=== PATIENT | male | born 1955 | race Caucasian/White ===

== ENCOUNTER 2017-05-01 09:42 | Outpatient (CLI) | payer OTHER ==
[~2017-05-01 09:42] MED LIST: Iopamidol 370 76% 100 ML VIAL ONE
[2017-05-01 10:31] LABS: Anion Gap 15 mmol/L (10-20); BUN (Urea Nitrogen) 19 mg/dL (8.4-25.7); Calc. Creatinine Clearance 0 mL/min (70-130); Calcium 9.7 mg/dL (7.8-10.44); Carbon Dioxide 26 mmol/L (23-31); Chloride 99 mmol/L (98-107); Estimated GFR-MDRD 54
--- NOTE | 2017-05-01 14:33 | CT ---
CT ABDOMEN AND PELVIS WITH AND WITHOUT IV CONTRAST: Date: 05/01/17 HISTORY: Urinary retention, microscopic hematuria, abnormal bladder cytology, liver mass. COMPARISON: 01/10/17, 12/16/16. FINDINGS: Calcified granulomas in the lung bases again seen. The patient is post cholecystectomy. The right hep atic mass with peripheral nodular enhancement and petal filling consistent with hemangioma is stable. The spleen, pancreas, and adrenal glands are normal. No calculi seen in the kidneys, ureters, or urinary bladder. A Rod catheter is present in the urina ry bladder, which is not satisfactorily distended. There is prominence of the wall of the urinary mil dder which may be due to incomplete distention or thickening. There is normal contrast enhancement of the renal parenchyma and normal excretion to the ureters and urinary bladder. Small low density lesi ons in the kidneys are again seen, consistent with small cysts. Lobulated appearance of the kidneys i s again seen. No enhancing renal mass is identified. No free air, free fluid, or lymphadenopathy is noted in the abdomen or pelvis. Vascular calcification s are present without evidence of aneurysmal dilatation of the abdominal aorta. A normal appearing ap pendix is present. There is fecal material in the rectosigmoid. There are small, fat-containing bilat eral inguinal hernia. Postoperative changes in the left groin are again seen, including arterial bypa ss, which is partially visualized. IMPRESSION: 1. Hepatic hemangioma. 2. Small renal cyst. 3. Probable urinary bladder wall thickening. POS: [facility]
== END 2017-05-01 09:43 | disposition home or self-care (01) ==
LOC: SCSCT 09:42
PROVIDERS: ATTEND Urology
DX: R33.9 Retention of urine, unspecified (principal); R31.29 Other microscopic hematuria; R89.6 Abnormal cytological findings in specimens from other organs, systems and tissues; D18.09 Hemangioma of other sites; N28.1 Cyst of kidney, acquired
CPT/HCPCS: 74178; 80048

== ENCOUNTER 2017-06-03 12:58 | Emergency (ER) | payer OTHER ==
[2017-06-03 14:22] LABS: Bilirubin Negative (Negative); Blood, Urine Negative (Negative); Glucose, Urine (Dipstick) 500 mg/dL (Negative); Ketone, Urine Negative (Negative); Nitrite Negative (Negative); Protein, Urine (Dipstick) Trace mg/dL (Neg-Trace)
== END 2017-06-03 15:10 | disposition home or self-care (01) ==
LOC: SCSER 12:58
DX: R33.9 Retention of urine, unspecified (principal); E11.9 Type 2 diabetes mellitus without complications; E78.5 Hyperlipidemia, unspecified; I10 Essential (primary) hypertension; N40.0 Benign prostatic hyperplasia without lower urinary tract symptoms; Z86.73 Personal history of transient ischemic attack (TIA), and cerebral infarction without residual deficits; Z79.84 Long term (current) use of oral hypoglycemic drugs; Z79.82 Long term (current) use of aspirin; Z79.899 Other long term (current) drug therapy
CPT/HCPCS: 51703; 81003; 87086

== ENCOUNTER 2017-07-21 16:06 | Outpatient (CLI) | payer OTHER ==
[2017-07-21 16:33] LABS: Hemoglobin 13.3 g/dL (14.0-18.0); Mean Corpuscular HGB CONC 33.1 g/dL (32.0-36.0); Mean Corpuscular Hemoglobin 31.6 pg (27.0-31.0); Mean Corpuscular Volume 95.6 fl (80.0-94.0); Mean Platelet Volume 8.3 fL (7.4-10.4); Platelet Count 287 thou/uL (130-400); RBC Distribution Width 12.4 % (11.5-14.5); Red Blood Cell (RBC) Count 4.21 mill/uL (4.70-6.10); White Blood Cell (WBC) Count 10.6 thou/uL (4.8-10.8)
[2017-07-21 16:40] LABS: PTT 27.2 SEC (22.9-36.1); Prothrombin Time 13.3 SEC (12.0-14.7)
[2017-07-21 17:08] LABS: Anion Gap 16 mmol/L (10-20); BUN (Urea Nitrogen) 25 mg/dL (8.4-25.7); Calc. Creatinine Clearance 0 mL/min (70-130); Calcium 9.7 mg/dL (7.8-10.44); Carbon Dioxide 27 mmol/L (23-31); Chloride 96 mmol/L (98-107); Estimated GFR-MDRD 37; Glucose 176 mg/dL (80-115); Potassium 4.2 mmol/L (3.5-5.1); Sodium 135 mmol/L (136-145)
== END 2017-07-21 16:07 | disposition home or self-care (01) ==
LOC: LABBT 16:06
PROVIDERS: ATTEND Family Medicine
DX: Z01.818 Encounter for other preprocedural examination (principal); R89.6 Abnormal cytological findings in specimens from other organs, systems and tissues; N31.2 Flaccid neuropathic bladder, not elsewhere classified
CPT/HCPCS: 36415; 80048; 80061; 80076; 81001; 82570; 83036; 84156; 84443; 85025; 85610; 85730; 87077; 87086; 87186; 93005; 93010

== ENCOUNTER 2017-07-31 06:22 | Day surgery (SDC) | payer OTHER ==
[2017-07-21 16:36] VITALS: BMI 29.0
[2017-07-31] MEDS ORDERED: Levofloxacin 500 mg/D5W 100 ml Premix Bag ONE (06:52)
[2017-07-31] MEDS ORDERED: cefTRIAXone\\ROCEPHIN 2 GM in Sodium Chloride 0.9% 100 ML IVPB SCH (07:00)
[2017-07-31] MEDS ORDERED: Iothalamate Meglumine 60% 50 ML VIAL FS ONE (07:14)
[2017-07-31] MEDS ORDERED: Insulin Regular 300 UNITS/3 ML VIAL ONE (08:08)
[2017-07-31] MEDS ORDERED: Fentanyl 100 MCG/2 ML VIAL ONE (09:40)
[2017-07-31] MEDS ORDERED: Phenazopyridine HCl 97.5 MG TABLET ONE (12:19)
[2017-07-31] MEDS ORDERED: Oxybutynin 5 MG TAB ONE (12:19)
--- NOTE | 2017-07-31 12:49 | RAD ---
RETROGRADE IVP: HISTORY: Renal calcifications. COMPARISON: CT abdomen and pelvis from 05/01/2017. FINDINGS/IMPRESSION: Multiple limited intraoperative fluoroscopic views from a retrograde IVP were submitted for interpret ation. Contrast is seen in both renal collecting systems. There is no evidence of hydronephrosis. No obvious calculi are seen on this exam. Wires were eventually placed and double-J ureteral stents were seen in both renal collecting systems. POS: [facility]
[2017-07-31] MEDS ORDERED: Ondansetron ODT 4 MG TAB ONE (13:17)
--- NOTE | 2017-07-31 13:19 | OP ---
DATE OF SERVICE: 07/31/2017 PREOPERATIVE DIAGNOSES: 1. This is a 61-year-old male with history of urinary retention, chronic atonic bladder. 2. History of cerebrovascular accident. 3. Diabetes. 4. History of microscopic hematuria, positive cytology. POSTOPERATIVE DIAGNOSES: 1. This is a 61-year-old male with history of urinary retention, chronic atonic bladder. 2. History of cerebrovascular accident. 3. Diabetes. 4. History of microscopic hematuria, positive cytology. PROCEDURE: Cystoscopy, random bladder biopsy, bilateral balloon dilatation of the intramural ureter, bilateral flexible ureteroscopy, pyeloscopy, diagnostic. Bilateral retrograde, bilateral 6 x 26 carol nt with dangler taped to his indwelling Rod catheter, replacement of his Rod catheter, 18 Panamanian 10 mL to leg bag. SPECIMEN: 1. Random bladder biopsy x3: 1) right lateral wall; 2) mid posterior; 3) left lateral intraoperativ e findings, no evidence of bladder lesion. 2. Bilateral retrograde pyelogram negative for filling defect. 3. Bilateral ureteroscopy, pyeloscopy negative for occult lesion. 4. Bilateral Narciso plaques. INDICATIONS FOR THE PROCEDURE AND HISTORY: Mr. Collins is a 61-year-old male with history of urinar y retention and urodynamics demonstrating atonic bladder with history of CVA and diabetes. The patie nt's urinary retention was being managed with his , performing clean intermittent catheterization . She has had difficulty catheterizing him efficiently, I did rescope him which demonstrated no evid ence of false passage. As he is transitioning to chronic suprapubic tube, he presents today for abov e endoscopic evaluation. In addition, he has a history of positive cytology, with Cardiology, Neurol ogy clearance approved, presents for bilateral diagnostic ureteroscopy. Risks and complications incl uding, but not limited to; bleeding, pain, infection, urosepsis, recurrent CVA, clot retention, stric ture formation, possible secondary procedure, ureteral renal bladder injury, sepsis reviewed. All qu estions answered to their satisfaction and they desired to proceed. DESCRIPTION OF THE PROCEDURE: After an informed consent is signed, the patient is taken to the opera ting room, placed in a dorsal lithotomy position with the genital area prepped and draped in the usua l surgical sterile fashion. A 21-Panamanian cystoscope was utilized for cystoscopy. This demonstrated n o evidence of false passage, urethral stricture. Prostate demonstrated coapting lateral lobes with n o significant obstructive component per se. The bladder demonstrated some inflammatory changes at th e posterior wall consistent with chronic indwelling Rod catheter. Using a 30 and a 70 degree lens, I performed a cystoscopy which demonstrated no evidence of lesions suspicious for transitional cell carcinoma. The ureteral orifices identified in normal orthotopic position. At this time, a retrogra de pyelogram was performed with a 5 Panamanian open-ended catheter with 1:1 diluted contrast. This was p erformed on both sides. Bilateral retrogrades failed to demonstrate a filling defect. Prompt excret ion of contrast was noted. A 0.35 sensor wire was placed into the right collecting system, using a LY[employer] Kitchen 4 cm 12 Panamanian balloon dilator the intramural ureter was dilated under direct visual ization. After the balloon dilatation of the intramural ureter, we passed a 10 [place]amanian dual-lumen acc ess sheath to the level of the proximal ureter with ease, a second safety wire, a 0.35 superstiff was then placed into the right collecting system. A flexible ureteroscope was then able to be passed ov er the working wire without any issues. A diagnostic pyeloscopy, ureteroscopy performed which demons trated no evidence of occult TCC lesions. There were some intermittent areas of Narciso plaques in t he renal papilla. This was visualized in both collecting systems. At this time, the ureter was surv eyed which demonstrated no evidence of ureteral mucosa, trauma or lesion. A 6 x 26 double-J ureteral stent was passed without difficulty, left on dangler. The diagnostic ureteroscopy, pyeloscopy, ball oon dilatation was then performed in similar fashion on the left side which also failed to demonstrat e any occult lesions of concern. A 6 x 26 double-J ureteral stent was passed on the left side as jeet antoine left in situ. We then performed a random bladder biopsy. The biopsy bed was cauterized w sonia Dahl. An 18-Panamanian 10 mL Rod catheter was then replaced. Ten mL insufflated. Th e bilateral danglers were then taped to the patient's Rod catheter with Tegaderm at the hub. Cathet er was attached to a leg bag which demonstrated pink to red tinged urine. He tolerated the procedure well. He is discharged with indwelling Rod catheter due to atonic bladder. He is discharged with [place] 5/325 #50, ciprofloxacin for 5 days, Colace p.r.n. He will follow up with me this Monday, for bilateral stent removal on . If pathology is negat dejah, we will electively schedule the patient to have suprapubic tube. The patient may resume his Catracho vix when urine output is relatively clear.
[2017-07-31] MEDS ORDERED: Lidocaine 1% PF 5 ML VIAL ONE (15:32)
[2017-07-31] MEDS ORDERED: Ondansetron HCl/PF 4 MG/2 ML Vial ONE (15:32)
[2017-07-31] MEDS ORDERED: Propofol 200 MG/20 ML VIAL ONE (15:32)
[2017-07-31] MEDS ORDERED: PHENYLEPHRINE-NS 100 MCG/ML 10 ML SYRINGE ONE (15:32)
== END 2017-07-31 13:23 | disposition home or self-care (01) ==
LOC: SDC 06:22
PROVIDERS: ATTEND Urology
PROC: 0TBB8ZX Excision of Bladder, Via Natural or Artificial Opening Endoscopic, Diagnostic (ICD-10-PCS; principal; 2017-07-31)
PROC: 0T9880Z Drainage of Bilateral Ureters with Drainage Device, Via Natural or Artificial Opening Endoscopic (ICD-10-PCS; principal; 2017-07-31)
DX: N31.2 Flaccid neuropathic bladder, not elsewhere classified (principal); R33.9 Retention of urine, unspecified; R31.29 Other microscopic hematuria; B02.29 Other postherpetic nervous system involvement; I25.10 Atherosclerotic heart disease of native coronary artery without angina pectoris; E11.22 Type 2 diabetes mellitus with diabetic chronic kidney disease; I12.9 Hypertensive chronic kidney disease with stage 1 through stage 4 chronic kidney disease, or unspecified chronic kidney disease; N18.9 Chronic kidney disease, unspecified; E11.51 Type 2 diabetes mellitus with diabetic peripheral angiopathy without gangrene; I69.354 Hemiplegia and hemiparesis following cerebral infarction affecting left non-dominant side; Z79.2 Long term (current) use of antibiotics; Z79.02 Long term (current) use of antithrombotics/antiplatelets; Z79.82 Long term (current) use of aspirin; Z79.4 Long term (current) use of insulin; Z79.899 Other long term (current) drug therapy; Z95.820 Peripheral vascular angioplasty status with implants and grafts; Z90.49 Acquired absence of other specified parts of digestive tract; Z98.890 Other specified postprocedural states; Z87.891 Personal history of nicotine dependence
CPT/HCPCS: 36416; 74420; 88305; 88342; 88360; 96372; C1758; J0696; J1815; J1956; J2001; J2405; J2704; J3010; J7050; Q0162; Q9961

== ENCOUNTER 2017-08-31 14:44 | Outpatient (CLI) | payer OTHER ==
[2017-08-31 16:00] LABS: Hemoglobin 12.2 g/dL (14.0-18.0); Mean Corpuscular HGB CONC 33.2 g/dL (32.0-36.0); Mean Corpuscular Hemoglobin 30.7 pg (27.0-31.0); Mean Corpuscular Volume 92.6 fl (80.0-94.0); Mean Platelet Volume 7.8 fL (7.4-10.4); Platelet Count 250 thou/uL (130-400); RBC Distribution Width 12.9 % (11.5-14.5); Red Blood Cell (RBC) Count 3.98 mill/uL (4.70-6.10); White Blood Cell (WBC) Count 8.7 thou/uL (4.8-10.8)
[2017-08-31 16:06] LABS: PTT 26.3 SEC (22.9-36.1); Prothrombin Time 12.8 SEC (12.0-14.7)
[2017-08-31 16:25] LABS: Anion Gap 15 mmol/L (10-20); BUN (Urea Nitrogen) 14 mg/dL (8.4-25.7); Calc. Creatinine Clearance 0 mL/min (70-130); Calcium 9.3 mg/dL (7.8-10.44); Carbon Dioxide 23 mmol/L (23-31); Chloride 99 mmol/L (98-107); Estimated GFR-MDRD 58; Glucose 261 mg/dL (80-115); Potassium 3.8 mmol/L (3.5-5.1); Sodium 133 mmol/L (136-145)
--- NOTE | 2017-08-31 16:45 | RAD ---
CHEST 2 VIEWS: HISTORY: Preop. FINDINGS: Cardiac silhouette and pulmonary vasculature are unremarkable. Mediastinum is midline with aortic ca lcification. There is no confluent airspace consolidation, pneumothorax, or pleural fluid apparent. Degenerative changes involve the thoracic spine on the lateral view. IMPRESSION: 1. Atherosclerosis. 2. No active cardiopulmonary abnormalities are otherwise demonstrated. POS: [facility]
== END 2017-08-31 14:45 | disposition home or self-care (01) ==
LOC: LABBT 14:44
PROVIDERS: ATTEND Urology
DX: Z01.818 Encounter for other preprocedural examination (principal); Z01.812 Encounter for preprocedural laboratory examination; R33.9 Retention of urine, unspecified
CPT/HCPCS: 71046; 80048; 81001; 85027; 85610; 85730; 87077; 87086; 87186

== ENCOUNTER 2017-09-20 08:56 | Day surgery (SDC) | payer OTHER ==
[2017-08-31 15:06] VITALS: BMI 29.4
[2017-09-20] MEDS ORDERED: CEFAZOLIN/Water 2 GM/20 ML SYRINGE ONE (10:57)
[2017-09-20] MEDS ORDERED: Fentanyl 100 MCG/2 ML VIAL ONE (11:34)
[2017-09-20] MEDS ORDERED: Levofloxacin 500 mg/D5W 100 ml Premix Bag ONE (11:43)
--- NOTE | 2017-09-20 13:39 | OP ---
DATE OF PROCEDURE: 09/20/2017 PREOPERATIVE DIAGNOSES: 1. A 62-year-old male with atonic bladder. 2. History of hematuria workup negative status post ureteroscopy, pyeloscopy, random bladder biopsy. POSTOPERATIVE DIAGNOSES: 1. A 62-year-old male with atonic bladder. 2. History of hematuria workup negative status post ureteroscopy, pyeloscopy, random bladder biopsy. PROCEDURES PERFORMED: Cystoscopy. A 22 [place]ib[place] Councill-tip suprapubic tube placement , dilation of suprapubic tube track. SURGEON: Dr. Bishop. ANESTHESIA: General. COMPLICATIONS: None apparent. DISPOSITION: To recovery room in stable condition. ESTIMATED BLOOD LOSS: Minimal. INDICATIONS FOR THE PROCEDURE AND HISTORY: Mr. Collins is a 62-year-old male with a history of urinary retention, atonic bladder with history of CVA, peripheral vascular disease. He underwent comprehensive workup regarding microscopic hematuria. As he had subsequent positive cytology, he underwent ureteroscopy, pyeloscopy which demonstrated no significant pathology. He presents today for suprapubic tube placement, as his has had difficulty performing clean intermittent catheterization, which he has been on quite some time. As she has difficulty cathing him intermittently, I did rule out a urethral stricture component of trauma, they desire to proceed with suprapubic tube urinary diversion due to neurogenic atonic bladder. Risks and complications including, but not limited to, bleeding, pain, infection, injury to adjacent organs such as bowel, major vasculature, risk of possible clot retention was reviewed. Expectation of chronic bacteriuria was again discussed with patient and family in detail and they desired to proceed without reservation. DESCRIPTION OF PROCEDURE: After an informed consent is signed, the patient is taken to the operating room, placed in a dorsal lithotomy position with the genital area prepped and draped in the usual surgical sterile fashion. A 22 Djib[place]ian cystoscope was utilized for cystoscopy, which demonstrated no evidence of urethral stricture false passage. Prostatic urethra demonstrated no significant obstruction. Upon entering the bladder, again noted is a large capacious bladder. The bladder was distended via the cystoscope to the level of the umbilicus. Approximately two fingerbreadths above the pubic symphysis, we passed an 18 gauge spinal needle accessing the bladder. The area was marked and using a #10 blade, a small skin incision was made. A 16-Djiboutian Cook codetagner suprapubic tube trocar was then placed with the bladder distended. With this placed into the level of the bladder, we passed a 0.35 Super Stiff wire to the level of the bladder. With the wire confirmed to be in the bladder, using a [employer] NephroMax balloon dilator, we dilated the tract with a 30 Djib[place]ian balloon. Subsequently, I was able to pass a 22 [place]ib[place]ian Councill-tip Rod catheter without any issues. A 15 mL of sterile water was insufflated and the suprapubic tube sutured to skin using 3-0 nylon. This demonstrated pink to clear urine output. This was attached to leg bag gravity bag with extension tubing. He tolerated the procedure well. He will follow up with me in next Monday. If the urine output remains clear, he will be cleared to restart his antiplatelet therapy. NAVEEND
== END 2017-09-20 15:05 | disposition home or self-care (01) ==
LOC: SDC 08:56
PROVIDERS: ATTEND Urology
PROC: 0T9B40Z Drainage of Bladder with Drainage Device, Percutaneous Endoscopic Approach (ICD-10-PCS; principal; 2017-09-20)
DX: N31.2 Flaccid neuropathic bladder, not elsewhere classified (principal); E11.51 Type 2 diabetes mellitus with diabetic peripheral angiopathy without gangrene; I25.10 Atherosclerotic heart disease of native coronary artery without angina pectoris; I12.9 Hypertensive chronic kidney disease with stage 1 through stage 4 chronic kidney disease, or unspecified chronic kidney disease; E11.22 Type 2 diabetes mellitus with diabetic chronic kidney disease; N18.9 Chronic kidney disease, unspecified; N40.1 Benign prostatic hyperplasia with lower urinary tract symptoms; R33.8 Other retention of urine; I69.354 Hemiplegia and hemiparesis following cerebral infarction affecting left non-dominant side; K59.00 Constipation, unspecified; Z87.891 Personal history of nicotine dependence; Z99.3 Dependence on wheelchair; Z79.82 Long term (current) use of aspirin; Z79.4 Long term (current) use of insulin; Z79.899 Other long term (current) drug therapy; Z98.890 Other specified postprocedural states
CPT/HCPCS: 36416; C2627; J1956; J3010; J3370

== ENCOUNTER 2017-12-26 07:31 | Outpatient (CLI) | payer OTHER ==
[2017-12-26] MEDS ORDERED: Iopamidol 370 76% 100 ML VIAL ONE (09:00)
--- NOTE | 2017-12-26 10:58 | CT ---
CT ARTERIOGRAM ABDOMEN AND PELVIS WITH IV CONTRAST AND 3D MIP IMAGING WITH BILATERAL LEG RUNOFF: HISTORY: Claudication. Vascular disease. COMPARISON: 05/01/2017 FINDINGS: Hemangioma within the right liver lobe is again demonstrated. The gallbladder is surgically absent. Degenerative changes of the lumbar spine. A suprapubic catheter decompresses the urinary bladder. There is fecal distention of the rectum. Borderline-sized lymph nodes throughout the mesentery are u nchanged in appearance. Calcification throughout the arterial structures. Multifocal moderate to severe stenoses throughout the superior mesenteric artery. The celiac trunk is patent. There is calcification throughout the i nferior mesenteric artery without the lumen well evaluated. Two primary right renal arteries are visible with calcification, but no significant stenosis reliably demonstrated. Two left renal arteries are patent with arterial calcification. The right iliac artery contains calcification with approximately 60% stenosis of the common iliac art daniela. The external iliac artery contains a focal area of approximately 80% stenosis. Approximately 7 0% stenosis within the right common femoral artery. There is severe calcification along the course o f the right femoral artery, with imaging outrunning the contrast flow. Arterial flow is not well doc umented within the femoral artery, although there is very faint opacification of the popliteal artery . Calcification is present throughout the small vessels of the right lower leg without good arterial opacification. On the left, there is a short segment focus of high grade, approximately 90% stenosis, within the ext ernal iliac artery. A focal area of narrowing with approximately 90% stenosis also involves the bifu rcation of the external iliac artery. This is probably at the origin of the iliofemoral bypass. The re is thrombus within the bypass, with approximately 50% narrowing at several levels. At the level o f the popliteal artery, the imaging has outrun the contrast flow. There is calcification within the popliteal artery and small vessels of the lower leg without good arterial opacification. IMPRESSION: 1. Severe vascular disease with multilevel severe stenosis of the iliac and femoral arteries. Due t o the severe stenosis, the distal arterial structures are not well opacified for evaluation. Please consider conventional arteriography. Due to severe disease and prior surgery, a femoral access may n ot be possible. The right common femoral artery is severely stenotic. An upper extremity access or accessing the left arterial graft may be necessary. 2. Chronic type findings of the abdomen and pelvis are stable. POS: [facility]
== END 2017-12-26 07:32 | disposition home or self-care (01) ==
LOC: SCSCT 07:31
PROVIDERS: ATTEND Internal Medicine Cardiovascular Disease
DX: I73.9 Peripheral vascular disease, unspecified (principal); I70.202 Unspecified atherosclerosis of native arteries of extremities, left leg; Z98.890 Other specified postprocedural states
CPT/HCPCS: 75635

== ENCOUNTER 2018-02-09 12:31 | Outpatient (CLI) | payer OTHER ==
--- NOTE | 2018-02-10 05:13 | EKG ---
Test Reason : Blood Pressure : / mmHG Vent. Rate : 080 BPM Atrial Rate : 080 BPM P-R Int : 198 ms QRS Dur : 148 ms QT Int : 412 ms P-R-T Axes : 061 095 067 degrees QTc Int : 475 ms Normal sinus rhythm Right axis deviation Right bundle branch block Abnormal ECG When compared with ECG of 21-JUL-2017 16:18, No significant change was found Confirmed by KATELYN DUKE ([id number]) on 02/10/2018 5:12:50 AM Referred By: JU Confirmed By:KATELYN DUKE
== END 2018-02-09 12:32 | disposition home or self-care (01) ==
LOC: LABBT 12:31
PROVIDERS: ATTEND Thoracic Surgery (Cardiothoracic Vascular Surgery)
DX: Z01.818 Encounter for other preprocedural examination (principal); I73.9 Peripheral vascular disease, unspecified
CPT/HCPCS: 80048; 85027; 86850; 86900; 86901; 93005; 93010

== ENCOUNTER 2018-07-04 11:27 | Inpatient (IN) | payer OTHER ==
[2018-07-04 11:57] LABS: Bilirubin Small (Negative); Blood, Urine Small (Negative); Clarity Cloudy (Clear); Glucose, Urine (Dipstick) Negative (Negative); Leukocyte Moderate (Negative); Nitrite Negative (Negative); Protein, Urine (Dipstick) > or equal to 300 mg/dL (Neg-Trace); Urobilinogen 0.2 mg/dL (0.2-1.0); pH, Urine Greater/Equal 9.0 (5.0-9.0)
[2018-07-04 12:02] LABS: Bacteria/HPF 3+ HPF (None Seen); Hyaline Casts/LPF NONE SEEN LPF (0-3 Hyaline); Squamous Epithelial 0-3 HPF (0-3)
[2018-07-04 12:17] LABS: ALT (SGPT) 11 U/L (8-55); AST (SGOT) 48 U/L (5-34); Albumin 2.8 g/dL (3.4-4.8); Alkaline Phosphatase 756 U/L (40-150); Anion Gap 19 mmol/L (10-20); BUN (Urea Nitrogen) 27 mg/dL (8.4-25.7); Bilirubin, Total 1.4 mg/dL (0.2-1.2); Calc. Creatinine Clearance 0 mL/min (70-130); Calcium 8.6 mg/dL (7.8-10.44); Carbon Dioxide 18 mmol/L (23-31); Chloride 98 mmol/L (98-107); Estimated GFR-MDRD 34; Globulin 5.5 g/dL (2.4-3.5); Glucose 135 mg/dL (80-115); Potassium 4.7 mmol/L (3.5-5.1); Protein, Total 8.3 g/dL (5.8-8.1); Sodium 130 mmol/L (136-145)
[2018-07-04] MEDS ORDERED: cefTRIAXone\\ROCEPHIN 1 GM VIAL ONE (12:31)
[2018-07-04] MEDS ORDERED: Sodium Chloride 0.9% 100 ML ONE (12:31)
[2018-07-04] MEDS ORDERED: Iopamidol 370 76% 100 ML VIAL ONE (13:20)
[2018-07-04 13:44] LABS: Hemoglobin 10.8 g/dL (14.0-18.0); Mean Corpuscular HGB CONC 32.8 g/dL (32.0-36.0); Mean Corpuscular Hemoglobin 28.2 pg (27.0-31.0); Mean Corpuscular Volume 86.1 fL (78.0-98.0); Red Blood Cell (RBC) Count 3.83 mill/uL (4.70-6.10); White Blood Cell (WBC) Count 7.8 thou/uL (4.8-10.8)
--- NOTE | 2018-07-04 13:52 | RAD ---
PORTABLE CHEST: Indications: Mental status change. Comparison: 08-31-17 FINDINGS: The lungs appear clear of infiltrate. Heart and mediastinum are unremarkable and unchanged. Mild aort ic calcification. Review of the bony thorax shows new sclerotic foci seen involving the scapula, shoulders, and ribs. IMPRESSION: 1. No evidence of acute lung process. 2. Evidence of new bony sclerotic foci seen when compared to prior study. Bony metastatic lesions mus t be excluded. Recommend clinical correlation and consider further evaluation with bone scan. Code T POS: [facility]
[2018-07-04 14:07] LABS: #Eosinphils 0.3 thou/uL (0.0-0.7); #Lymphocytes 0.7 thou/uL (1.20-3.40); #Monocytes 0.7 thou/uL (0.11-0.59); %Basophils 0.4 % (0.0-1.0); %Eosinophils 3.3 % (0.0-10.0); %Lymphocytes 9.2 % (21.0-51.0); %Monocytes 9.5 % (0.0-10.0); %Neutrophils 77.5 % (42.0-75.0); MDiff Complete? YES; Mean Platelet Volume 10.9 fL (7.4-10.4); Platelet Count 107 thou/uL (130-400); Platelet Morphology Comment Appears Decreased; Polychromasia SLIGHT = 2-3 cells (100X) (0-2/hpf)
--- NOTE | 2018-07-04 14:30 | CT ---
CT ABDOMEN AND PELVIS WITHOUT CONTRAST: Technique: Multiple axial tomograms were obtained through the abdomen and pelvis without IV enhanceme nt. Indications: Evidence of new bony metastatic disease seen on chest film. Comparison: Abdominal CT 05-01-17 FINDINGS: Lung bases show small left effusion and mild basilar atelectasis. There is an area of low attenuation in the right lobe of the liver. This is at the site of a previous ly described hemangioma. Liver and spleen otherwise unremarkable. Pancreas unremarkable. Adrenal glan ds unremarkable. Kidneys show irregular contour bilaterally which is stable from the prior study. There is no hydronep hrosis. There is a 1.0 cm hyperdense exophytic lesion from the inferior pole of the left kidney. This lesion was present previously but was more cystic in density on the prior study. Other renal lesions cannot be assessed due to lack of IV contrast. However, the renal contour and kidneys otherwise appe ar stable. Small bowel loops appear unremarkable. Appendix is normal. Colon is unremarkable. Urinary bladder is contracted around an indwelling Rod catheter. The prostate does not appear enlar ged. Aorta is calcified but normal caliber. Osseous windows revealed diffuse sclerotic foci seen in all visualized osseous structures consistent with diffuse bony metastasis. This is a new finding when compared to the 2017 CT scan. IMPRESSION: 1. Evidence of diffuse osseous metastatic disease. 2. Small left pleural effusion. 3. Kidneys have irregular contour and a tiny exophytic lesion off the inferior left kidney as describ ed above. Enhancing lesions cannot be excluded. Overall, the kidneys appear stable. 4. Low attenuation in the right lobe of the liver is seen at the site of a previously described heman gioma. POS: [facility]
--- NOTE | 2018-07-04 14:32 | PDOC.FPRHP ---
- History of Present Illness Chief Complaint: failed outpt UTI History of Present Illness: 62 yo male with multiple medical conditions presents to outside ER for evaluation of "not feeling right." and patient historians. concerned that patient has not been feeling right or doing well since . notes concerning changes since that time including weight loss, decreased appetite, back pain, and weakness. Over the past week he was diagnosed with UTI. Culture taken but patient unsure of results. Was started on macrobid. 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 notices a change in mentation today that prompted ER visit. Notes decreased ability concentrate and focus. No pus noted in cath. Reports a decreased UOP. Denies fever and chills but notes episode of diaphoresis. Code status: Full (discussed with patient and ) - Allergies/Adverse Reactions Allergies Allergy/AdvReac Type Severity Reaction Status Date / Time No Known Allergies Allergy Verified 02/09/18 12:48 - Home Medications Medication Instructions Recorded Confirmed Type metFORMIN [Glucophage] 500 mg PO QAM 06/12/16 07/04/18 History Simvastatin 20 mg PO HS #30 tablet 06/22/16 07/04/18 Rx Clopidogrel Bisulfate [Plavix] 75 mg PO DAILY 09/06/16 07/04/18 History Losartan Potassium 100 mg PO HS 09/06/16 07/04/18 History Pantoprazole [Protonix] 40 mg PO DAILY 09/06/16 07/04/18 History Aspirin [Ecotrin Low Strength] 81 mg PO DAILY 10/25/16 07/04/18 History Docusate [Colace] 100 mg PO BID 07/31/17 07/04/18 History Insulin Detemir 100 UNITS/ML 36 units SC BID 08/31/17 07/04/18 History [Levemir] Polyethylene Glycol 3350 [Miralax] 34 gm PO DAILY 08/31/17 07/04/18 History Diazepam 5 mg PO PRN PRN 02/09/18 07/04/18 History Icosapent Ethyl [Vascepa] 2 gm PO BID-WM 02/09/18 07/04/18 History Carvedilol 12.5 mg PO BID 07/04/18 07/04/18 History HYDROcodone Bit/APAP 5/325 [Olivet 1 tab PO Q6HR PRN 07/04/18 07/04/18 History 5/325] - History PMHx: 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 Bladder bx negative x 3 07/2017. PSHx: david (2016), stent L leg (01/2018), left external iliac to popiliteal bypass (2015), Negrita procedure (2015), Right Carotid enart (2015) now with occluded right ICA, suprapubic catheter (07/2017), colonoscopy with multiple polyps (several years ago, was to follow up but did not) FHx: non-contributory Social: 2ppd smoker since age 15 but stopped after CVA, social alcohol use, denies illicit drug use Specialist: Gen surg: Liang CT surg: Pierre Urology: Edna Cards: Adilia GI: Ragupathi Neuro: Alexandre Nephro: Dav - Review of Systems General: reports: night sweats. denies: fever/chills, fatigue Eyes: denies: eye pain, vision changes ENT: denies: nasal congestion, rhinorrhea Respiratory: denies: cough, shortness of breath Cardiovascular: denies: chest pain, palpitation Gastrointestinal: reports: nausea, constipation. denies: vomiting, diarrhea, abdominal pain, GI bleeding Genitourinary: reports: other (decreased urine output from suprapubic catheter) . denies: dysuria, polyuria Skin: denies: rashes, lesions Musculoskeletal: denies: pain, tenderness Neurological: reports: weakness (no use of L arm/hand since stroke, can walk with walker, decreased strength on the LLE). denies: numbness - Vital signs BP: 125/65 HR: 85 RR: 16 Tmax: 97.6 Pox: 94% on ra Wt: 85kg - Physical Exam Constitutional: NAD, awake, alert and oriented HEENT: normocephalic and atraumatic, PERRLA, EOMI Neck: supple Heart: RRR, normal S1/S2, no murmurs/rubs/gallops Lungs: CTAB, no respiratory distress, good air movement, no rales/rhonchi Abdomen: soft, non-tender, bowel sounds present, no masses/distention Musculoskeletal: normal structure -Musculoskeletal: inability to use L arm plantar flexion 3/4 on L foot Neurological: CN II-XII intact Skin: no rash/lesions, capillary refill <2 seconds FMR H&P: Results - Labs Result Diagrams: 07/05/18 10:53 07/05/18 07:08 Lab results: WBC 7.8 thou/uL (4.8-10.8) 07/04/18 11:55 Hgb 10.8 g/dL (14.0-18.0) L 07/04/18 11:55 Hct 33.0 % (42.0-52.0) L 07/04/18 11:55 MCV 86.1 fL (78.0-98.0) 07/04/18 11:55 Plt Count 107 thou/uL (130-400) L 07/04/18 11:55 Neutrophils % 77.5 % (42.0-75.0) H 07/04/18 11:55 Sodium 130 mmol/L (136-145) L 07/04/18 11:55 Potassium 4.7 mmol/L (3.5-5.1) 07/04/18 11:55 Chloride 98 mmol/L (98-107) 07/04/18 11:55 Carbon Dioxide 18 mmol/L (23-31) L 07/04/18 11:55 BUN 27 mg/dL (8.4-25.7) H 07/04/18 11:55 Creatinine 1.98 mg/dL (0.7-1.3) H 07/04/18 11:55 Glucose 135 mg/dL (80-115) H 07/04/18 11:55 Lactic Acid 1.5 mmol/L (0.5-2.2) 07/04/18 11:55 Calcium 8.6 mg/dL (7.8-10.44) 07/04/18 11:55 Total Bilirubin 1.4 mg/dL (0.2-1.2) H 07/04/18 11:55 AST 48 U/L (5-34) H 07/04/18 11:55 ALT 11 U/L (8-55) 07/04/18 11:55 Alkaline Phosphatase 756 U/L (40-150) H 07/04/18 11:55 Serum Total Protein 8.3 g/dL (5.8-8.1) H 07/04/18 11:55 Albumin 2.8 g/dL (3.4-4.8) L 07/04/18 11:55 Urine Ketones Trace mg/dL (Negative) H 07/04/18 11:40 Urine Blood Small (Negative) H 07/04/18 11:40 Urine Nitrite Negative (Negative) 07/04/18 11:40 Ur Leukocyte Esterase Moderate (Negative) H 07/04/18 11:40 Urine RBC 4-6 HPF (0-3) 07/04/18 11:40 Urine WBC 4-6 HPF (0-3) H 07/04/18 11:40 Ur Squamous Epith Cells 0-3 HPF (0-3) 07/04/18 11:40 Urine Bacteria 3+ HPF (None Seen) H 07/04/18 11:40 FMR H&P: A/P - Problem List (1) Bone metastases Current Visit: Yes Status: Acute Code(s): C79.51 - SECONDARY MALIGNANT NEOPLASM OF BONE (2) UTI (urinary tract infection) Current Visit: Yes Status: Acute (3) Hyponatremia Current Visit: No Status: Acute Code(s): E87.1 - HYPO-OSMOLALITY AND HYPONATREMIA (4) CKD (chronic kidney disease) stage 3, GFR 30-59 ml/min Current Visit: No Status: Chronic Code(s): N18.3 - CHRONIC KIDNEY DISEASE, STAGE 3 (MODERATE) (5) DM type 2 (diabetes mellitus, type 2) Current Visit: No Status: Chronic Qualifiers: Diabetes mellitus shelter insulin use: without shelter use Diabetes mellitus complication status: with unspecified complications Qualified Code(s) : E11.8 - Type 2 diabetes mellitus with unspecified complications (6) H/O: CVA (cerebrovascular accident) Current Visit: No Status: Chronic Code(s): Z86.73 - PRSNL HX OF TIA (TIA), AND CEREB INFRC W/O RESID DEFICITS Comment: with left UE plegia and Left LE paresis, is wheel chair bound (7) Hypertension Current Visit: No Status: Chronic Code(s): I10 - ESSENTIAL (PRIMARY) HYPERTENSION Qualifiers: Hypertension type: essential hypertension Qualified Code(s): I10 - Essential (primary) hypertension (8) Peripheral vascular disease Current Visit: No Status: Chronic Code(s): I73.9 - PERIPHERAL VASCULAR DISEASE, UNSPECIFIED (9) Tobacco use Current Visit: No Status: Chronic Code(s): Z72.0 - TOBACCO USE - Plan # Bone metastasis - noted on CXR - weight loss since , worsening bone pain - elevated ALP - positive fish for bladder cancer 2017 - bladder wall bx neg 2018 - ordered CT chest, bone scan, UPEP, SPEP for further evaluation - will plan to consult Onc in the morning # UTI - failed outpt macrobid - denies fevers, chills, has had sweats, no blood in urine - rocephin # DASH on CKD - Cr 1.98 - gentle rehydration #HTN - home meds # History of CVA - left sided weakness since stroke - PT/OT # Tobacco abuse - 80 pack-year Diet: regular Fluids: LR 75 ml/hr Code: full (discussed with patient and family) Dispo: >2 midnights FMR H&P: Upper Level - Plan Date/Time: 07/04/18 8698 I, [], have evaluated this patient and agree with findings/plan as outlined by management 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 Pertinent changes/additions are listed here. Addendum - Attending - Attending Attestation Date/Time: 07/04/18 3539 I personally evaluated the patient and discussed the management with Dr. Cervantes I agree with the History, Examination, Assessment and Plan documented above with any addition or exceptions noted below. 62 yo male with hx of suprapubic cath admitted for complicated UTI. Patient per has really been declining since . Over the past week was diagnosed with UTI. Started on macrobid. Noticed progressive mental changes and decreased UOP. has been concerned with progressive weight loss, decreased appetite, back pain, and generalized weakness. VS reviewed. Lab reviewed. Imaging reviewed. NAD. Has to be redirected for exam. Slow to answer questions. RRR. no murmurs CTA bilaterally but limited exam due to mobility suprapubic cath in place. no erythema or drainage noted. 1. Sclerotic Bone disease: Multiple metastatic/sclerotic lesions to spine and pelvic bones. Images compared from 12/2017. None appear to be present at that time. Risk include chronic tobacco use, positive FISH for bladder cancer 2017, and colon polyps. Bladder wall bx negative 2018. Left renal lesion incompletely evaluated due to lack of contrast. No significant family hx of cancer. Mother with cervical cancer. However father hx unknown. Alk phos elevated since [address] chest and bone survey ordered. No evidence of pathological fracture on current imaging. Urine cytology sent. Rule out MM due to anemia, bone pain, weight loss, and imaging findings. However patient does not have hypercalcemia. Consult oncology. Consider repeat CT abdomen with contrast for better renal lesion evaluation. However in past was noted to be cystic. Will awaiting imaging results and onc recommendation before further workup. 2. Complicated UTI: Male with suprapubic cath. Will request urine studies from PCP office. Past cultures reviewed. Unsure if ER culture will be helpful due to recent antibiotic use. Will continue Rocephin at this time. Consider adding Vanc if needed due to past hx of resistant Staph epidermidis. No evidence of sepsis complicated UTI at this time. 3. DASH on CKD: Urine studies pending. Give gentle fluids. 4. Hyperbilirubinemia: Repeat labs. Monitor. s/p david. No mass lesions on imaging other than liver hemangioma but awaiting chest scans. 5. Elevated AST: Trend. No significant finding on hepatic imaging. 6. Hyponatriemia: Osmols pending along with urine studies. Will review aug. Trend. Will start IVFs. Rule out SIADH. 7. Comorbid conditions: Adjust medications as indicated 8. Lovenox Olga
[2018-07-04] MEDS ORDERED: Ondansetron ODT 4 MG TAB PO PRN (16:18)
[2018-07-04] MEDS ORDERED: Senokot S 8.6-50 MG TAB PO PRN (16:18)
[2018-07-04] MEDS ORDERED: Bisacodyl 5 MG TAB PO PRN (16:18)
[2018-07-04 16:19] VITALS: BMI 26.9
[2018-07-04] MEDS ORDERED: Ibuprofen 200 MG TAB PO PRN (16:21)
[2018-07-04] MEDS ORDERED: Diazepam 5 MG TAB PO PRN (17:17)
[2018-07-04] MEDS ORDERED: HumaLOG 300 UNITS/3 ML VIAL SC PRN (17:20)
[2018-07-04] MEDS ORDERED: Dextrose 50% Abboject 50 ML SYRINGE SLOW IVP PRN (17:20)
[2018-07-04] MEDS ORDERED: Dextrose 5% in Water 1,000 ML IV PRN (17:20)
[2018-07-04] MEDS ORDERED: Melatonin 3 MG TAB PO PRN (17:38)
[2018-07-04] MEDS: HYDROcodone/Acetaminophen 5/325 mg Tablet PO PRN (18:33)
[2018-07-04] MEDS: Lactated Ringer's 1,000 ML IV SCH (18:39)
--- NOTE | 2018-07-04 19:27 | CT ---
CT CHEST WITH IV CONTRAST: 07/04/2018 PROVIDED CLINICAL HISTORY: Abnormal chest radiograph. FINDINGS: Vascular calcification, including coronary calcium, is demonstrated. There is an enlarged right para tracheal lymph node, measuring about 1.6 cm in short axis. There is an enlarged right hilar lymph no de, measuring about 1.7 cm. There are multiple enlarged paratracheal lymph nodes seen within the reg ion of the thoracic inlet, the largest of which measures about 1.4 cm in short axis. No evidence for axillary lymph node enlargement. There are small bilateral pleural effusions. There is a 3 mm, nonspecific, noncalcified, right upper lobe pulmonary nodule. Occasional additional tiny, nonspecific, nodular densities are also present. The airway appears patent but of normal caliber. Secretions are seen within the distal trachea. There are innumerable sclerotic lesions throughout the visualized osseous structures. A fluid densit y structure within the subcutaneous adipose layer, overlying the manubrium of the sternum, is likely a sebaceous cyst. There is an ill-defined, hypodense mass present involving the right hepatic lobe, measuring about 3.9 cm. There is an ill-defined low density present within the region of the gastric cardia and gastroesophageal junction with enlarged lymph nodes seen about this region. Prominent, e nlarged lymph nodes within the visualized upper retroperitoneum. IMPRESSION: 1. Diffuse osseous metastatic disease. 2. Right liver lesion, likely metastatic. 3. Small bilateral pleural effusions. 4. Abnormal appearance to the gastric cardia and gastroesophageal junction, for which further evalua tion with endoscopy is recommended. 5. Abdominal lymph node enlargement and thoracic lymph node enlargement, as above, presumably metast atic. POS: CHADD
--- NOTE | 2018-07-04 19:54 | RAD ---
WHOLE BODY BONE SURVEY 07/04/18 PROVIDED CLINICAL HISTORY: Metastatic disease. FINDINGS: Innumerable sclerotic lesions are seen throughout the axial and proximal appendicular skeleton compat ible with metastatic disease. Vascular stent material and degenerative changes are seen. Surgical cli ps overlie each inguinal region. No evidence for fracture. IMPRESSION: As above. POS: CHADD
[2018-07-04] MEDS: Zolpidem Tartrate 5 MG TAB PO PRN (20:29)
[2018-07-04] MEDS: Atorvastatin Calcium 10 MG TAB PO SCH (20:29)
[2018-07-04] MEDS: Carvedilol 6.25 MG TAB PO SCH (20:29)
[2018-07-04] MEDS: Docusate 100 MG CAP PO SCH (20:31)
[2018-07-04] MEDS: Insulin Glargine 10 UNITS in Pre-Filled Syringe 1 EACH SC SCH (20:31)
[2018-07-05] MEDS: Lactated Ringer's 1,000 ML IV SCH (05:40)
[2018-07-05] MEDS: HYDROcodone/Acetaminophen 5/325 mg Tablet PO PRN ×4 (05:49→20:31)
[2018-07-05 07:41] LABS: Hemoglobin 9.6 g/dL (14.0-18.0); Mean Corpuscular HGB CONC 31.5 g/dL (32.0-36.0); Mean Corpuscular Hemoglobin 27.5 pg (27.0-31.0); Mean Corpuscular Volume 87.3 fL (78.0-98.0); Mean Platelet Volume 8.5 fL (7.4-10.4); Platelet Count 102 thou/uL (130-400); RBC Distribution Width 14.1 % (11.5-14.5); White Blood Cell (WBC) Count 5.7 thou/uL (4.8-10.8)
[2018-07-05 07:42] LABS: #Eosinphils 0.2 thou/uL (0.0-0.7); #Lymphocytes 0.6 thou/uL (1.20-3.40); #Monocytes 0.6 thou/uL (0.11-0.59); #Neutrophils 4.3 thou/uL (1.40-6.50); %Basophils 0.5 % (0.0-1.0); %Eosinophils 3.5 % (0.0-10.0); %Lymphocytes 10.5 % (21.0-51.0); %Monocytes 9.9 % (0.0-10.0); %Neutrophils 75.7 % (42.0-75.0)
[2018-07-05 07:59] LABS: ALT (SGPT) 12 U/L (8-55); AST (SGOT) 46 U/L (5-34); Albumin 2.6 g/dL (3.4-4.8); Alkaline Phosphatase 811 U/L (40-150); Anion Gap 15 mmol/L (10-20); BUN (Urea Nitrogen) 28 mg/dL (8.4-25.7); Calc. Creatinine Clearance 51 mL/min (70-130); Calcium 8.3 mg/dL (7.8-10.44); Carbon Dioxide 19 mmol/L (23-31); Chloride 99 mmol/L (98-107); Estimated GFR-MDRD 38; Globulin 4.7 g/dL (2.4-3.5); Glucose 124 mg/dL (80-115); Potassium 4.1 mmol/L (3.5-5.1); Protein, Total 7.3 g/dL (5.8-8.1); Sodium 129 mmol/L (136-145)
[2018-07-05] MEDS ORDERED: Icosapent Ethyl [Vascepa] 2 GM PO SCH (08:00)
[2018-07-05] MEDS: Carvedilol 6.25 MG TAB PO SCH ×2 (08:35→20:31)
[2018-07-05] MEDS: Enoxaparin Sodium 30 MG/0.3 ML SYRINGE SC SCH (08:36)
[2018-07-05] MEDS: Aspirin 81 mg Enteric Coated Tablet PO SCH (08:36)
[2018-07-05] MEDS: Docusate 100 MG CAP PO SCH ×2 (08:37→20:32)
[2018-07-05] MEDS: Polyethylene Glycol 3350 17 GM Packet PO SCH (08:37)
--- NOTE | 2018-07-05 08:38 | PDOC.FM ---
Addendum entered and electronically signed by Bradley Cervantes MD 07/05/18 09:52: ordered: peripheral smear, CA 19-9 & 15-3, CEA, AFP, LDH, PSA, beta hcg for workup of cancer of unknown source consulted GI for eval for endoscopy for biopsy of mass at [facility] Original Note: - Subjective Subjective: This morning patient reports he is feeling ok overall. He states his bone pain is well-controlled with norco but turning for the bone scan was painful. He has not been eating much but states he would try some chocolate ensure today. Denies fevers, chills, sweats, N/V/D. Discussed finding of multiple metastasis on imaging. Discussed further workup to find source. Family is understandingly disappointed but ready for further workup. - Objective Vital Signs & Weight: Vital Signs (12 hours) Temp Pulse Resp BP Pulse Ox 07/05/18 07:37 97.8 F 90 18 101/65 94 L 07/05/18 04:00 97.3 F L 91 18 116/71 92 L 07/05/18 00:00 98.1 F 97 18 110/74 92 L Weight Weight 85.275 kg I&O: 07/04/18 07/05/18 07/06/18 06:59 06:59 06:59 Intake Total 1300 Output Total 300 550 Balance -300 750 Result Diagrams: 07/05/18 07:08 07/05/18 07:08 Phys Exam - Physical Examination Constitutional: NAD HEENT: PERRLA, moist MMs Respiratory: no wheezing, clear to auscultation bilateral Cardiovascular: RRR, no significant murmur Gastrointestinal: soft, non-tender, no distention, positive bowel sounds catheter in place no sign of bleeding or induration Musculoskeletal: no edema, pulses present weakness on the L chronic, Psychiatric: normal affect, A&O x 3 Skin: no rash, cap refill <2 seconds Dx/Plan (1) Bone metastases Code(s): C79.51 - SECONDARY MALIGNANT NEOPLASM OF BONE Status: Acute (2) UTI (urinary tract infection) Status: Acute (3) Hyponatremia Code(s): E87.1 - HYPO-OSMOLALITY AND HYPONATREMIA Status: Acute (4) CKD (chronic kidney disease) stage 3, GFR 30-59 ml/min Code(s): N18.3 - CHRONIC KIDNEY DISEASE, STAGE 3 (MODERATE) Status: Chronic (5) DM type 2 (diabetes mellitus, type 2) Status: Chronic Qualifiers: Diabetes mellitus 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 terminal supervisor insulin use: without ferry terminal supervisor use Diabetes mellitus complication status: with unspecified complications Qualified Code(s) : E11.8 - Type 2 diabetes mellitus with unspecified complications (6) H/O: CVA (cerebrovascular accident) Code(s): Z86.73 - PRSNL HX OF TIA (TIA), AND CEREB INFRC W/O RESID DEFICITS Status: Chronic (7) Hypertension Code(s): I10 - ESSENTIAL (PRIMARY) HYPERTENSION Status: Chronic Qualifiers: Hypertension type: essential hypertension Qualified Code(s): I10 - Essential (primary) hypertension (8) Peripheral vascular disease Code(s): I73.9 - PERIPHERAL VASCULAR DISEASE, UNSPECIFIED Status: Chronic (9) Tobacco use Code(s): Z72.0 - TOBACCO USE Status: Chronic - Plan Plan: # Bone metastasis - weight loss since gi, worsening bone pain, decreasing appetite - elevated ALP - positive fish for bladder cancer 2017 - bladder wall bx neg 2018 - CT chest and bone scan show widespread metastasis - SPEP, UPEP pending - will discuss further imaging on rounds, consider CT head, endoscopy - Oncology consulted, recs appreciated # UTI - failed outpt macrobid - denies fevers, chills, has had sweats, no blood in urine - rocephin - ucx, bcx pending # DASH on CKD - Cr 1.98-> 1.8 - gentle rehydration #HTN - home meds # History of CVA - left sided weakness since stroke - PT/OT # Tobacco abuse - 80 pack-year Diet: regular Fluids: LR 75 ml/hr Code: full (discussed with patient and family), they value "quality over quantity", instructed them to await further information before making big decisions Dispo: >2 midnights Addendum - Attending - Attending Attestation Date/Time: 07/05/18 5784 I personally evaluated the patient and discussed the management with Dr. Cervantes. I agree with the History, Examination, Assessment and Plan documented above with any addition or exceptions noted below. Patient here originally for UTI failed outpatient treatment but subsequently noted to have likely diffuse radha metastatic disease with unknown primary malignancy. In regards to UTI, his UA is consistent with either Klebsiella, Proteus, or Ureaplasma and he continues on Rocephin with cultures pending. This could represent colonization due to suprapubic catheter placement. Due to diffuse radha mets, we are performing malignancy workup included peripheral smear, tumor markers, SPEP/UPEP. Imaging did not reveal primary source though suspect GE junction and will consult GI for possible EGD and biopsy. Otherwise, may need to pursue IR guided liver or node biopsy. DASH versus CKD and appears that may have a degree of SIADH. If repeat labs show stable Cr and decreasing sodium, will begin fluid restriction and assume his renal status is more chronic in nature. Increased total protein and globulins, though radha involvement not characteristic for MM. Oncology on board and awaiting biopsy.
[2018-07-05] MEDS: cefTRIAXone\\ROCEPHIN 1 GM in Sodium Chloride 0.9% 100 ML IVPB SCH (08:40)
[2018-07-05 11:09] LABS: Hemoglobin 10.1 g/dL (14.0-18.0); Mean Corpuscular HGB CONC 33.7 g/dL (32.0-36.0); Mean Corpuscular Hemoglobin 28.7 pg (27.0-31.0); Mean Corpuscular Volume 85.1 fL (78.0-98.0); Mean Platelet Volume 8.5 fL (7.4-10.4); Platelet Count 97 thou/uL (130-400); Red Blood Cell (RBC) Count 3.52 mill/uL (4.70-6.10); White Blood Cell (WBC) Count 5.5 thou/uL (4.8-10.8)
[2018-07-05] MEDS: metFORMIN 500 MG TAB PO SCH (11:13)
[2018-07-05] MEDS: Insulin Glargine 10 UNITS in Pre-Filled Syringe 1 EACH SC SCH ×2 (11:13→21:28)
[2018-07-05 11:33] LABS: Band 14 % (5-11); Eosinophils 3 % (0-10); Lymphocytes 17 % (21-51); MDiff Complete? YES; Metamyelocyte 1 % (0-0); Monocytes 4 % (0-10); Myelocyte 2 % (0-0); Neutrophil 59 % (42-75); Platelet Morphology Comment Appears Decreased; Polychromasia SLIGHT = 2-3 cells (100X) (0-2/hpf)
--- NOTE | 2018-07-05 12:08 | CON ---
DATE OF CONSULTATION: HISTORY OF PRESENT ILLNESS: The patient is a 62-year-old male, who was in his normal state of health until the day of admission when he developed some shortness of breath. He had an appointment scheduled, but he decided to come to the emergency room. He reports over the last several weeks, he has lost his appetite. He denies any dysphagia or nausea or vomiting. He has lost an unknown amount of weight. He had a colonoscopy with polyps several years ago. He also had an evaluation for liver mass in the past, which has included liver biopsy and was told that it was hemangioma. PAST MEDICAL HISTORY: Significant for diabetes mellitus, hypertension, cerebrovascular accident, peripheral vascular disease, and hepatic hemangioma. PAST SURGICAL HISTORY: Includes cholecystectomy, vascular surgery, popliteal femoral bypass, carotid endarterectomy, and suprapubic catheter placement. MEDICATIONS: Include; 1. Metformin 500 mg p.o. daily. 2. Simvastatin 20 mg p.o. at bedtime. 3. Plavix 75 mg p.o. daily. 4. Losartan 100 mg p.o. at bedtime. 5. Protonix 40 mg p.o. daily. 6. Aspirin 81 mg p.o. daily. 7. Docusate sodium 100 mg p.o. b.i.d. 8. Insulin 36 units subcu b.i.d. 9. Polyethylene glycol 34 g p.o. daily. 10. Vascepa 2 g p.o. b.i.d. 11. Coreg 12.5 mg p.o. b.i.d. 12. Hydrocodone one p.o. q.6 hours p.r.n. ALLERGIES: NO KNOWN ALLERGIES. SOCIAL HISTORY: He is a smoker. Does not drink alcohol. FAMILY HISTORY: Negative for GI or liver disease. REVIEW OF SYSTEMS: CONSTITUTIONAL: No fever or chills. Positive weight loss. EYES: No blurred vision or double vision. ENT: No sore throat or earaches. CARDIOVASCULAR: No chest pain or palpitations. PULMONARY: Positive shortness of breath. Negative for cough. Negative for wheeze. GI: See above. : No hematuria or dysuria. MUSCULOSKELETAL: No joint pain or muscle weakness other than baseline. SKIN: No rashes. NEUROLOGIC: No numbness or seizure activity other than baseline. PHYSICAL EXAMINATION: GENERAL: Shows a well-developed, well-nourished white male, in no acute distress. VITAL SIGNS: Temperature is 97.3, pulse 91, respiratory rate 18, and blood pressure 116/71. HEENT: Unremarkable. NECK: Supple. CHEST: Clear. CARDIOVASCULAR: Regular rate and rhythm. ABDOMEN: Soft and nontender without organomegaly or masses. Bowel sounds are present, normoactive. RECTAL: Deferred. EXTREMITIES: Show sequelae of his cerebrovascular accident. LABORATORY DATA: Laboratory shows a hemoglobin 9.6, hematocrit of 30.5, and white blood cell count of 5.7. Chemistry shows sodium of 129, CO2 of 19, BUN 28, creatinine 1.80, glucose 124, AST 46, alkaline phosphatase of 811, albumin 2.6. IMAGING DATA: Abdominal pelvic CT from 07/04/2018, shows evidence of diffuse metastatic disease or evidence of osseous metastatic disease. Small left pleural effusions and irregular contour of the kidneys. Low-attenuation lesions noted in the right lobe. CT of the chest is done, it shows diffuse osseous metastatic disease, right liver lesion, small bilateral pleural effusions, abnormal GE junction, normal lymph node enlargement, and thoracic lymph node enlargement. ASSESSMENT: 1. Metastatic disease of the thoracic lymph nodes and bones. 2. Abnormal CT of the gastroesophageal junction. 3. Cerebrovascular accident. 4. Hepatic hemangioma. RECOMMENDATIONS: 1. EGD in the a.m. 2. Tumor markers. Job ID: [id number]
[2018-07-05] MEDS ORDERED: Morphine 2 MG/ML SYRINGE SLOW IVP PRN (12:33)
[2018-07-05] MEDS: Sodium Chloride 0.9% 1,000 ML IV SCH (12:34)
--- NOTE | 2018-07-05 12:36 | CON ---
DATE OF CONSULTATION: HISTORY OF PRESENT ILLNESS: Mr. Collins is a 62-year-old male with a complicated medical history including diabetes mellitus, type 2, CVA, atonic bladder with suprapubic catheter placement. He presented to the emergency room yesterday with complaints of weakness and weight loss. He has lost approximately 30 pounds over the last two and half months secondary to poor appetite. Denies nausea, vomiting, dysphagia, no abdominal pain. He was admitted for further workup. A CT scan of the abdomen and pelvis showed diffuse metastatic bone lesions. He had a skeletal survey which again showed the sclerotic lesions. He underwent a chest CT, which showed abnormal appearance of the gastric cardia and the GE junction. The patient had a CVA over two years ago with residual left sided weakness. He is mostly wheelchair bound but is able to assist in transfer. He denies any chest pain or shortness of breath. He has had no hemoptysis or melena. No odynophagia or dysphagia, just lack of appetite. He does have a history of liver hemangioma, which is seen on CT scan. There was some question of positive biopsy from his liver done by Dr. Rich Costello; however, I am unable to find any record of a positive biopsy. I do have 3 negative biopsies of his bladder. His last colonoscopy was approximately [address] Hung. He did have polyps and was instructed to follow up within a year but did not return. We were asked to assist with diagnosis. PAST MEDICAL HISTORY: 1. CVA. 2. Chronic kidney disease. 3. Diabetes mellitus type 2. 4. Hypertension. 5. Peripheral vascular disease. 6. Tobacco use. 7. Atonic bladder, status post suprapubic catheter. PAST SURGICAL HISTORY: Leg stents, suprapubic catheter placement. ALLERGIES: NO KNOWN DRUG ALLERGIES. HOME MEDICATIONS: 1. Aspirin daily. 2. Coreg 12.5 mg b.i.d. 3. Plavix 75 mg daily. 4. Diazepam p.r.n. 5. Colace daily. 6. Hydrocodone p.r.n. 7. Vascepa b.i.d. 8. Insulin b.i.d. 9. Losartan daily. 10. Metformin daily. 11. Protonix daily. 12. MiraLAX daily. 13. Simvastatin daily. FAMILY HISTORY: The patient's mother and grandmother from cervical cancer. His mother when he was age [age] and father when he was 12 from emphysema. SOCIAL HISTORY: , lives with his spouse. A pack-year history of smoking. No alcohol or illicit drug use. REVIEW OF SYSTEMS: 10-point review of systems is negative except for noted in HPI. PHYSICAL EXAMINATION: VITAL SIGNS: Temperature 97.8, pulse is 90, respiratory rate 18, blood pressure is 101/65, he is 94% on room air. GENERAL: Well-developed, well-nourished male, in no acute distress. HEENT: Normocephalic and atraumatic. Pupils are equal and reactive to light. NECK: Supple. CV: Regular rate and rhythm. LUNGS: Clear. ABDOMEN: Soft and nontender. Bowel sounds are positive. : He has a suprapubic cath with yellow urine. EXTREMITIES: No clubbing, cyanosis, or edema. SKIN: No rash. HEMATOLOGIC: No petechiae or purpura. NEUROLOGIC: Left-sided weakness. PSYCH: He is alert, oriented, and appropriate. LABORATORY DATA: Pertinent labs and x-rays; Current WBCs 5.5, hemoglobin 10.1, hematocrit 30, and platelet count is 97,000. Sodium 129, potassium 4.1, chloride 99, CO2 is 19, BUN is 28, creatinine 1.8, calcium 8.3, total bilirubin is 1.0, AST is 46, ALT is 12, alkaline phosphatase is 811, LDH is 1307. Serum total protein is 7.3, albumin 2.6, globulin 4.7. Urine , positive for bacteria. RADIOLOGY: Per HPI. ASSESSMENT: 1. Metastatic bone lesions. 2. Thickening of the gastric cardia and GE junction. 3. Liver hemangioma. 4. History of stroke with left-sided weakness. DISCUSSION: Tumor markers have been ordered by Family Practice residents. Dr. Thompson has seen the patient and is planning endoscopy with biopsy of the GE junction. We will consider biopsy of the bony lesion at some point. Further recommendations will be based on pathology and lab values. Thank you for the consult. We will follow his hospital course. Job ID: [id number] MTDD
[2018-07-05 16:03] LABS: Alpha-Fetoprotein,Tumor Marker Less than 2.0 ng/mL (0.89-8.78); Cancer Antigen - CA 125 48.3 U/mL (Less than 35)
[2018-07-05 17:16] LABS: Anion Gap 16 mmol/L (10-20); BUN (Urea Nitrogen) 31 mg/dL (8.4-25.7); Calc. Creatinine Clearance 49 mL/min (70-130); Calcium 8.5 mg/dL (7.8-10.44); Carbon Dioxide 20 mmol/L (23-31); Chloride 98 mmol/L (98-107); Estimated GFR-MDRD 36; Glucose 221 mg/dL (80-115); Potassium 4.3 mmol/L (3.5-5.1); Sodium 130 mmol/L (136-145)
[2018-07-05] MEDS: Atorvastatin Calcium 10 MG TAB PO SCH (20:32)
[2018-07-05] MEDS: Losartan 25 MG TAB PO SCH (20:32)
[2018-07-05] MEDS: Zolpidem Tartrate 5 MG TAB PO PRN (21:28)
[2018-07-06] MEDS: HYDROcodone/Acetaminophen 5/325 mg Tablet PO PRN ×3 (00:05→16:03)
[2018-07-06] MEDS: Sodium Chloride 0.9% 1,000 ML IV SCH ×3 (04:29→21:55)
[2018-07-06] MEDS: Carvedilol 6.25 MG TAB PO SCH ×2 (06:06→21:51)
[2018-07-06] MEDS: cefTRIAXone\\ROCEPHIN 1 GM in Sodium Chloride 0.9% 100 ML IVPB SCH (07:43)
--- NOTE | 2018-07-06 08:04 | PDOC.FM ---
- Subjective Subjective: This morning patient reports he is feeling well and his pain is well-controlled with only norco. Reviewed current results with patient and , they state they are ready for EGD procedure this morning. Patient ate well for supper last night. Denies any fevers, chills, or sweats. - Objective Vital Signs & Weight: Vital Signs (12 hours) Temp Pulse Resp BP BP Pulse Ox 07/06/18 06:06 118/77 07/06/18 04:32 98.1 F 92 18 118/77 91 L 07/06/18 00:00 98.1 F 92 16 137/76 92 L 07/05/18 20:31 145/83 H Weight Admit Weight 85.275 kg Weight 85.275 kg I&O: 07/05/18 07/06/18 07/07/18 06:59 06:59 06:59 Intake Total 2530 Output Total 300 1200 Balance -300 1330 Result Diagrams: 07/06/18 07:30 07/06/18 07:30 Phys Exam - Physical Examination Constitutional: NAD HEENT: PERRLA, moist MMs Neck: no nodes Respiratory: no wheezing, clear to auscultation bilateral Cardiovascular: RRR, no significant murmur Gastrointestinal: soft, non-tender, no distention, positive bowel sounds no erythema or induration to catheter site Musculoskeletal: no edema, pulses present chronic L sided weakness Psychiatric: normal affect, A&O x 3 Skin: no rash, cap refill <2 seconds Dx/Plan (1) Bone metastases Code(s): C79.51 - SECONDARY MALIGNANT NEOPLASM OF BONE Status: Acute (2) UTI (urinary tract infection) Status: Acute (3) Hyponatremia Code(s): E87.1 - HYPO-OSMOLALITY AND HYPONATREMIA Status: Acute (4) CKD (chronic kidney disease) stage 3, GFR 30-59 ml/min Code(s): N18.3 - CHRONIC KIDNEY DISEASE, STAGE 3 (MODERATE) Status: Chronic (5) DM type 2 (diabetes mellitus, type 2) Status: Chronic Qualifiers: 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: without care home use Diabetes mellitus complication status: with unspecified complications Qualified Code(s) : E11.8 - Type 2 diabetes mellitus with unspecified complications (6) H/O: CVA (cerebrovascular accident) Code(s): Z86.73 - PRSNL HX OF TIA (TIA), AND CEREB INFRC W/O RESID DEFICITS Status: Chronic (7) Hypertension Code(s): I10 - ESSENTIAL (PRIMARY) HYPERTENSION Status: Chronic Qualifiers: Hypertension type: essential hypertension Qualified Code(s): I10 - Essential (primary) hypertension (8) Peripheral vascular disease Code(s): I73.9 - PERIPHERAL VASCULAR DISEASE, UNSPECIFIED Status: Chronic (9) Tobacco use Code(s): Z72.0 - TOBACCO USE Status: Chronic - Plan Plan: # Bone metastasis from unknown primary source, suspect GI - weight loss since , worsening bone pain, decreasing appetite - elevated ALP - positive fish for bladder cancer 2017 - bladder wall bx neg 2018 - CT chest, abd/pelvis, and bone scan show widespread metastasis - SPEP, UPEP pending - ordered tumor markers 07/05- currently positive LDH, CEA - EGD this AM for biopsy at jxn - Oncology consulted, recs appreciated # GE jxn mass - EGD this AM w/ biopsy - GI consulted, recs appreciated - 80 pack-year smoking history, colonoscopy w/ polyps but no f/u # UTI - failed outpt macrobid - denies fevers, chills, has had sweats, no blood in urine - rocephin - ucx shows providencia rettgeri - bcx NGTD # Hyponatremia - NA stable at 130, AM labs pending - NS at 75ml/hr - consider SIADH # DASH on CKD - Cr 1.98-> 1.8 - gentle rehydration - morning labs pending #HTN - home meds # History of CVA - left sided weakness since stroke - PT/OT # Tobacco abuse - 80 pack-year Diet: regular Fluids: LR 75 ml/hr Code: full (discussed with patient and family), they value "quality over quantity", instructed them to await further information before making big decisions Dispo: >2 midnights Addendum - Attending - Attending Attestation Date/Time: 07/06/18 1023 I personally evaluated the patient and discussed the management with Dr. Cervantes. I agree with the History, Examination, Assessment and Plan documented above with any addition or exceptions noted below. Patient in somewhat better spirits this morning. He is going for EGD this morning to further explore the GE junction mass/thickening. Tumor markers resulting which are nonspecific of course, but do suggest a GI source for primary malignancy. Bone pain controlled with hydrocodone and will continue that. Hyponatremia and DASH improved somewhat. Alot of labs still pending and further workup pending those results. Oncology on board. UCx resulting Providencia and will continue Rocephin and discuss with Urology the need for suprapubic catheter replacement while here.
[2018-07-06 08:15] LABS: ALT (SGPT) 12 U/L (8-55); AST (SGOT) 51 U/L (5-34); Albumin 2.6 g/dL (3.4-4.8); Alkaline Phosphatase 973 U/L (40-150); Anion Gap 17 mmol/L (10-20); BUN (Urea Nitrogen) 25 mg/dL (8.4-25.7); Calc. Creatinine Clearance 69 mL/min (70-130); Calcium 8.4 mg/dL (7.8-10.44); Carbon Dioxide 16 mmol/L (23-31); Chloride 104 mmol/L (98-107); Estimated GFR-MDRD 54; Globulin 4.8 g/dL (2.4-3.5); Glucose 148 mg/dL (80-115); Potassium 4.1 mmol/L (3.5-5.1); Protein, Total 7.4 g/dL (5.8-8.1); Sodium 133 mmol/L (136-145)
[2018-07-06 08:36] LABS: #Eosinphils 0.3 thou/uL (0.0-0.7); #Lymphocytes 0.8 thou/uL (1.20-3.40); #Monocytes 0.5 thou/uL (0.11-0.59); #Neutrophils 4.8 thou/uL (1.40-6.50); %Basophils 0.3 % (0.0-1.0); %Monocytes 7.7 % (0.0-10.0); Hemoglobin 9.9 g/dL (14.0-18.0); Mean Corpuscular HGB CONC 33.3 g/dL (32.0-36.0); Mean Corpuscular Hemoglobin 28.6 pg (27.0-31.0); Mean Corpuscular Volume 85.8 fL (78.0-98.0); Mean Platelet Volume 8.9 fL (7.4-10.4); Platelet Count 114 thou/uL (130-400); RBC Distribution Width 14.3 % (11.5-14.5); Red Blood Cell (RBC) Count 3.47 mill/uL (4.70-6.10); White Blood Cell (WBC) Count 6.4 thou/uL (4.8-10.8)
[2018-07-06] MEDS ORDERED: Morphine 2 MG/ML SYRINGE ONE (09:26)
[2018-07-06] MEDS: Polyethylene Glycol 3350 17 GM Packet PO SCH (09:31)
[2018-07-06] MEDS: Enoxaparin Sodium 30 MG/0.3 ML SYRINGE SC SCH (09:31)
[2018-07-06] MEDS: Insulin Glargine 10 UNITS in Pre-Filled Syringe 1 EACH SC SCH ×2 (09:31→21:53)
[2018-07-06] MEDS: Docusate 100 MG CAP PO SCH ×2 (09:32→21:51)
[2018-07-06] MEDS: Aspirin 81 mg Enteric Coated Tablet PO SCH (09:32)
[2018-07-06] MEDS ORDERED: PACU-Morphine 4MG/ML VIAL SLOW IVP PRN (10:34)
[2018-07-06] MEDS ORDERED: Promethazine HCl 25 MG/ML VIAL IM PRN (10:34)
[2018-07-06] MEDS ORDERED: Ondansetron HCl/PF 4 MG/2 ML Vial IVP PRN (10:34)
[2018-07-06] MEDS ORDERED: Promethazine HCl 25 MG/ML VIAL SLOW IVP PRN (10:34)
[2018-07-06] MEDS ORDERED: PHENYLEPHRINE-NS 100 MCG/ML 10 ML SYRINGE ONE (11:08)
[2018-07-06] MEDS ORDERED: Lidocaine 1% PF 5 ML VIAL ONE (11:08)
[2018-07-06] MEDS ORDERED: PROPOFOL 200 MG/20 ML VIAL ONE (11:08)
[2018-07-06] MEDS ORDERED: ePHEDrine/0.9% NaCl/PF SYRINGE 50 mg/10 ml ONE (11:08)
[2018-07-06 11:27] LABS: % Free PSA 18.3 % (.); Total PSA 0.6 ng/mL (0.0-4.0)
[2018-07-06] MEDS: metFORMIN 500 MG TAB PO SCH (12:48)
[2018-07-06] MEDS: Atorvastatin Calcium 10 MG TAB PO SCH (21:51)
[2018-07-06] MEDS: Losartan 25 MG TAB PO SCH (21:54)
--- NOTE | 2018-07-06 23:42 | CON ---
DATE OF CONSULTATION: 07/06/2018 REASON FOR CONSULTATION: Suprapubic tube exchange. HISTORY OF PRESENT ILLNESS: Mr. Collins is a 62-year-old male with history of coronary artery disease, CVA, peripheral vascular disease status post femoral-popliteal at [facility] with limited mobility, wheelchair bound, with history of left hemiparesis. I initially saw him back in July 2016 as he presented with postvoid residual of 650 mL. He underwent comprehensive workup, cystoscopy demonstrated no significant BPH component. He was subsequently found to have atonic bladder and has been managed with suprapubic tube exchange every 6 weeks, which he has been tolerating uneventfully. 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 She relates that they presented to Urgent Care previously as there was concern regarding possible UTI component as he had lower back pain. A nurse practitioner at [facility] informed the patient that he may have a UTI as he has lower back pain and has been treated with Macrobid for empiric UTI. Of note, there has been no significant gross hematuria, fever, or suprapubic pain. relates that in a sudden onset, he has become fatigued, has significant loss of weight over the last few weeks, decreased intake, and significant lower back pain. Unfortunately, the workup on this admission demonstrates an esophageal mass, which was biopsied today by Dr. Thompson and workup with CT of the chest, abdomen demonstrates diffuse metastatic disease. As he presented initially also with history of microscopic hematuria, a CT was obtained. There was no evidence of renal or bladder mass of concern. He underwent cystoscopy, pyeloscopy, ureteroscopy, retrograde pyelogram for hematuria workup which demonstrated no mass of concern. He has previously had positive cytology, however, converted to unremarkable cytology and therefore has been observed, this endoscopy demonstrated no lesion of concern. Followup imaging demonstrated no evidence of filling defect, renal bladder mass of concern. I last saw Mr. Collins on June 14 and I changed the suprapubic tube uneventfully and he was doing well. relates that since then he has decompensated significantly. PAST MEDICAL HISTORY: Diabetes, hypertension, peripheral vascular disease, CVA with left hemiplegia, coronary artery disease, chronic kidney disease, and history of multiple CVAs. PAST SURGICAL HISTORY: Include; 1. Cholecystectomy. 2. History of hidradenitis removal. 3. Femoral-popliteal. 4. Left leg stent. 5. May 2016 Negrita procedure thrombectomy. 6. July 2016 cystoscopy. 7. Laparoscopic cholecystectomy. 8. Urodynamics, February 2017, demonstrates atonic insensate bladder, no sensation at 800 mL. 9. May 2017, bilateral ureteroscopy, pyeloscopy retrograde. Random bladder biopsy workup negative. ALLERGIES: NO KNOWN DRUG ALLERGIES. REVIEW OF SYSTEMS: Ten point review of systems as above, otherwise noncontributory. PHYSICAL EXAMINATION: VITAL SIGNS: On arrival and currently, he has no fever, 98, 94, 20, 94, 144/ 94. GENERAL: The patient appears to be quite fatigued, appears decompensated since I saw him last. at bedside. HEENT: Grossly unremarkable. HEART: Distant. LUNGS: Decreased inspiratory effort, however, appears to be clear. ABDOMEN: Soft, protuberant, obese. GENITOURINARY: Suprapubic tube was exchanged at bedside. A new 24-Tamazight 30 mL suprapubic tube was exchanged uneventfully, irrigates to clear, secured to gravity bag. Circumcised. Scrotum is grossly unremarkable with no evidence of intratesticular mass. Digital rectal exam demonstrates no mass of concern. PERTINENT LABORATORY DATA: White count is 6.4, hemoglobin 9.4, platelet 114. Creatinine 1.3, alk phos of 973, LDH is 1300. Elevated CA levels and CEA. Blood culture is negative. Urine culture from SP tube demonstrates Providencia, pansensitive except to quinolones, nitrofurantoin, and ampicillin. He is currently on Rocephin. PERTINENT IMAGIN. CT of the chest with contrast, diffuse bony metastatic disease. Right liver lesion, metastatic; small bilateral pleural effusion; abnormal appearance of the esophageal junction. Abdominal and thoracic lymph node enlargement, presumed to be metastatic. CT ofthe abdomen stone protocol, diffuse osseous metastatic disease, small pleural effusion. Kidneys have irregular contour, which I reviewed myself, consistent with previous lobulated kidney. Tiny exophytic lesion in the left kidney, hyperdense. Bladder is grossly unremarkable with a suprapubic tube. CT with and without IV contrast, April 2017, hepatic hemangioma, low-density lesion in the kidneys, small renal cyst. Lobulated kidneys with no evidence of enhancing mass. IMPRESSION AND PLAN: 1. Mr. Collins is a 62-year-old male with multiple comorbidities as above, presents with lower back pain. Workup demonstrating diffuse metastatic disease, likely gastrointestinal source as there was an esophageal mass on EGD today. His prognosis is poor and guarded. Discussed with Medical Oncology Service, the patient will follow up with Dr. Rivas as an outpatient to discuss further treatment options. 2. History of microscopic hematuria, workup negative with ureteroscopy, pyeloscopy, prior history of cytology positive however converted to negative with no evidence of lesion on followup imaging. 3. Atonic bladder on chronic suprapubic tube. Interval, every six week change. He has a standing appointment with me in end of June. Informed the patient's that she may contact my office regarding followup appointment as his disposition is pending. Per today, she relates that she would like to take the patient home for self-care. I informed her against this as he appears to be quite frail; however, she states that she would like to take him home. Discharge with suprapubic tube to gravity as previous. Job ID: [id number] MTDD
[2018-07-07] MEDS: HYDROcodone/Acetaminophen 5/325 mg Tablet PO PRN ×3 (03:02→10:30)
[2018-07-07 06:26] LABS: #Eosinphils 0.3 thou/uL (0.0-0.7); #Lymphocytes 0.8 thou/uL (1.20-3.40); #Monocytes 0.5 thou/uL (0.11-0.59); #Neutrophils 4.4 thou/uL (1.40-6.50); %Basophils 0.2 % (0.0-1.0); %Eosinophils 5.5 % (0.0-10.0); %Lymphocytes 12.7 % (21.0-51.0); %Monocytes 8.4 % (0.0-10.0); %Neutrophils 73.2 % (42.0-75.0); Hemoglobin 9.2 g/dL (14.0-18.0); Mean Corpuscular HGB CONC 32.3 g/dL (32.0-36.0); Mean Corpuscular Hemoglobin 27.5 pg (27.0-31.0); Mean Platelet Volume 8.7 fL (7.4-10.4); Platelet Count 89 thou/uL (130-400); RBC Distribution Width 14.5 % (11.5-14.5); Red Blood Cell (RBC) Count 3.35 mill/uL (4.70-6.10)
[2018-07-07 06:33] LABS: ALT (SGPT) 15 U/L (8-55); AST (SGOT) 55 U/L (5-34); Albumin 2.5 g/dL (3.4-4.8); Alkaline Phosphatase 1024 U/L (40-150); Anion Gap 13 mmol/L (10-20); BUN (Urea Nitrogen) 25 mg/dL (8.4-25.7); Calc. Creatinine Clearance 79 mL/min (70-130); Calcium 8.2 mg/dL (7.8-10.44); Carbon Dioxide 18 mmol/L (23-31); Chloride 107 mmol/L (98-107); Estimated GFR-MDRD 63; Globulin 4.6 g/dL (2.4-3.5); Glucose 153 mg/dL (80-115); Potassium 4.1 mmol/L (3.5-5.1); Protein, Total 7.1 g/dL (5.8-8.1); Sodium 134 mmol/L (136-145)
--- NOTE | 2018-07-07 07:19 | PDOC.FM ---
- Subjective Subjective: Endorses uncontrolled pain on norco 5/325. Otherwise doing well. Ready to go home. - Objective MAR Reviewed: Yes Vital Signs & Weight: Vital Signs (12 hours) Temp Pulse Resp BP BP Pulse Ox 07/06/18 21:51 110/57 L 07/06/18 21:05 97.6 F 97 16 110/57 L 93 L Weight Admit Weight 85.275 kg Weight 85.275 kg I&O: 07/06/18 07/07/18 07/08/18 06:59 06:59 06:59 Intake Total 2530 624 Output Total 1200 450 Balance 1330 174 Result Diagrams: 07/07/18 06:12 07/07/18 06:12 Phys Exam - Physical Examination Constitutional: NAD HEENT: PERRLA, moist MMs Respiratory: no wheezing, no rales, clear to auscultation bilateral Cardiovascular: RRR, no significant murmur Gastrointestinal: soft, non-tender, no distention, positive bowel sounds Musculoskeletal: no edema, pulses present Psychiatric: normal affect, A&O x 3 Skin: no rash Dx/Plan (1) Bone metastases Code(s): C79.51 - SECONDARY MALIGNANT NEOPLASM OF BONE Status: Acute (2) UTI (urinary tract infection) Status: Acute (3) H/O: CVA (cerebrovascular accident) Code(s): Z86.73 - PRSNL HX OF TIA (TIA), AND CEREB INFRC W/O RESID DEFICITS Status: Chronic (4) Acute kidney injury superimposed on chronic kidney disease Code(s): N17.9 - ACUTE KIDNEY FAILURE, UNSPECIFIED; N18.9 - CHRONIC KIDNEY DISEASE, UNSPECIFIED Status: Acute (5) Hypertension Code(s): I10 - ESSENTIAL (PRIMARY) HYPERTENSION Status: Chronic Qualifiers: Hypertension type: essential hypertension Qualified Code(s): I10 - Essential (primary) hypertension (6) Tobacco use Code(s): Z72.0 - TOBACCO USE Status: Chronic (7) Hyponatremia Code(s): E87.1 - HYPO-OSMOLALITY AND HYPONATREMIA Status: Acute - Plan Plan: # Bone metastasis from unknown primary source, suspect esophageal - weight loss since thanksgi, worsening bone pain, decreasing appetite - elevated ALP - positive fish for bladder cancer 2017 - bladder wall bx neg 2018 - CT chest, abd/pelvis, and bone scan show widespread metastasis - SPEP, UPEP pending - ordered tumor markers 07/05- currently positive LDH, CEA - EGD yesterday with biopsy completed and pending results - Oncology consulted, recs appreciated - follow-up with oncology outpatient # GE jxn mass - EGD pending biopsy result - GI consulted, recs appreciated, follow-up outpatient - 80 pack-year smoking history, colonoscopy w/ polyps but no f/u # UTI - failed outpt macrobid - denies fevers, chills, has had sweats, no blood in urine - rocephin switched to Bactrim PO for discharge - ucx shows providencia rettgeri - bcx NGTD # Hyponatremia - NA stable # DASH on CKD - DASH resolved #HTN - home meds # History of CVA - left sided weakness since stroke - PT/OT # Tobacco abuse - 80 pack-year Diet: regular Fluids: LR 75 ml/hr Code: full (discussed with patient and family), they value "quality over quantity", instructed them to await further information before making big decisions Dispo:discharge today Addendum - Attending - Attending Attestation Date/Time: 07/07/18 1032 I personally evaluated the patient and discussed the management with Dr. Bedolla. I agree with the History, Examination, Assessment and Plan documented above with any addition or exceptions noted below. The patient is ready for discharge. Biopsy results pending and will be followed -up outpt. Pt's norco is not lasting for 4 hours. Will increase to norco 7.5 q 4 hours as the pt has a lot of pain from diffuse metastatic disease.
[2018-07-07 07:48] VITALS: TEMP 98.1
[2018-07-07] MEDS ORDERED: Megestrol Acetate 800 MG/20 ML UDCUP PO SCH (09:00)
--- NOTE | 2018-07-07 10:05 | CT ---
CT OF ABDOMEN AND PELVIS: DATE: 07/07/2018. COMPARISON: 01/10/2017. HISTORY: Mass at the gastroesophageal junction. TECHNIQUE: Axial CT imaging at 55 mm intervals from the lung bases through the pubic symphysis with intravenous and oral contrast. Coronal reformatted imaging obtained. FINDINGS: There are small bilateral pleural effusions, incompletely imaged on this examination. There is a sta ble nodule in the left lower lobe measuring 7 mm, as seen on 01/10/2017 examination. No free intraperitoneal air noted. There is a lobulated hypodense mass in the right lobe of the liver measuring 4.5 cm in AP dimension, similar when compared to the 01/10/2017 examination at which time it was diagnosed as a hepatic steven ioma. The liver appears otherwise unremarkable. The spleen appears normal. There is prominent wall thickening of the stomach in the region of the fundus and proximal body exten ding into the region of the gastroesophageal junction suspicious for underlying neoplastic mass lesio n. The pancreas, adrenal glands, and kidneys demonstrate no acute findings. Nonspecific abnormal fluid density seen in the presacral space with stranding of the presacral fat. There is nonspecific mild gaseous distention of distal sigmoid colon and rectum. There is a suprapub ic catheter present. The sigmoid colon demonstrates diverticulosis without evidence for diverticulitis. No evidence for b owel obstruction. There is severe atherosclerotic calcification of the abdominal aorta and its branches extending into bilateral inguinal regions. There is incompletely evaluated arterial stent graft material in the ing uinal region on the left. There are extensive sclerotic lesions seen throughout all imaged osseous structures including ribs bi laterally, imaged lower sternum, all imaged vertebral bodies, and through the pelvis, new when compar ed to 01/10/2017 examination, evidence of widespread osseous metastatic disease. There is bulky upper abdominal lymphadenopathy which includes numerous enlarged nodes in the gastrohepatic ligament measu ring up to 2.2 cm in short axis dimension. Enlarged maryana hepatis nodes measure up to 2.2 cm. Multi ple enlarged retroperitoneal nodes were seen. Enlarged node anterior to IVC measures 2.5 cm and retr ocrural lymphadenopathy noted bilaterally, measuring up to 1.3 cm on the right. Enlarged nodes are seen in the precardiac region measuring up to 1 cm. IMPRESSION: 1. Diffuse wall thickening of the proximal gastric body and gastric fundus and extending into the re gion of the gastroesophageal junction, evidence of a neoplastic mass lesion. 2. Bulky adenopathy within the abdomen and pelvis is evidence of metastatic disease and there is jaclyn dence of diffuse osseous metastatic disease throughout the abdomen and pelvis. 3. Hypodense lesion within the right lobe of the liver which has previously been documented as a hep atic hemangioma. 4. Nonspecific stranding of the presacral fat with fluid within the presacral space may be on the ba sis of colonic inflammatory change. Clinical correlation is required. 5. Bilateral pleural effusions. 6. Sigmoid diverticulosis without evidence for diverticulitis. POS: JULIH
[2018-07-07] MEDS: Polyethylene Glycol 3350 17 GM Packet PO SCH (10:13)
[2018-07-07] MEDS: Docusate 100 MG CAP PO SCH (10:16)
[2018-07-07] MEDS: Aspirin 81 mg Enteric Coated Tablet PO SCH (10:16)
[2018-07-07] MEDS: Insulin Glargine 10 UNITS in Pre-Filled Syringe 1 EACH SC SCH (10:17)
[2018-07-07] MEDS: cefTRIAXone\\ROCEPHIN 1 GM in Sodium Chloride 0.9% 100 ML IVPB SCH (10:24)
[2018-07-07] MEDS: Carvedilol 6.25 MG TAB PO SCH (10:26)
[2018-07-07 10:29] VITALS: BP 138/82
[2018-07-07] MEDS: Enoxaparin Sodium 30 MG/0.3 ML SYRINGE SC SCH (10:31)
[2018-07-07] MEDS: metFORMIN 500 MG TAB PO SCH (10:31)
--- NOTE | 2018-07-09 10:39 | DIS ---
DATE OF ADMISSION: 07/04/2018 DATE OF DISCHARGE: 07/07/2018 ADMITTING ATTENDING: Dr. Katie Russell. DISCHARGE ATTENDING: Emma Burns MD. CONSULTS: Urology, Gastroenterology, Oncology. PROCEDURES: Bone shows innumerable metastasis throughout the body. CT chest, abdomen, and pelvis showed numerous metastasis, notable for large lesion affecting the GE junction. EGD, take a biopsy of this mass. Pathology is pending. PRIMARY DIAGNOSIS: Metastatic cancer of unknown source, suspect esophageal. SECONDARY DIAGNOSES: History of cerebral vascular accident, urinary tract infection, hypernatremia, DASH on CKD, hypertension, tobacco abuse. DISCHARGE MEDICATIONS: Hydrocodone 7.5 mg q.4 hours, Bactrim b.i.d. four days, metformin, simvastatin, clopidogrel, losartan, Protonix, aspirin, docusate, MiraLAX, Levemir, diazepam, carvedilol. DISCONTINUED MEDICATION: None. HISTORY OF PRESENT ILLNESS AND HOSPITAL COURSE: A 62-year-old gentleman who came into the ER complaining of back pain thought to be secondary to urinary tract infection. He was treated outpatient with Macrobid last week for his presumed urinary tract infection. In the ER, x-ray was taken which showed multiple metastasis to the structures of the chest. The patient was admitted for further workup of this metastases. Oncology was consulted and outpatient followup was set up for the patient with Oncology. CT chest, abdomen, and pelvis showed multiple metastasis as well as a bone scan showed innumerable metastases throughout body affecting the bones. The patient had an EGD to take a biopsy of the large mass affecting the GE junction. The pathology is pending at this point. Multiple tumor markers were ordered during the stay. The initial showed suspicion for adenocarcinoma. The patient had had a colonoscopy 7 years ago and had multiple polyps and was told to follow up, but never got a repeat colonoscopy secondary to the family having many things to do with including his stroke. The patient had his suprapubic catheter changed out during the stay by Dr. Bishop. The patient was sent home with a four-day course of Bactrim to be sure he would be covered. The urine culture grew out Providencia rettgeri, which is a common noninfectious colonizer of bladder per Urology. The patient will follow up with Oncology for further treatment. Goals and wishes were discussed with the patient and the family. The patient and state that they very much favor quality of life over quantity of life. They are awaiting further information about his diagnosis and treatment options before making any decisions about whether or not to pursue treatment. The patient's pain was well controlled with [place] during the stay. DISPOSITION: Stable. DISCHARGE INSTRUCTIONS: 1. Location home. 2. Diet regular. 3. Activity, as tolerated. 4. Follow up Dr. Roach, Oncology, in one week. Dr. Bishop, Urology, 07/26/2018. Dr. Ventura, PCP, in 3 to 7 days. Job ID: [id number]
--- NOTE | 2018-07-09 11:43 | OP ---
DATE OF PROCEDURE: 07/06/2018 PREOPERATIVE DIAGNOSES: 1. Abnormal CT scan of the gastroesophageal junction. 2. Bony metastasis. DESCRIPTION OF PROCEDURE: After informed consent was obtained, the patient was placed in the left lateral decubitus position. Anesthesia was administered per the Anesthesia Department. Forward-viewing endoscope was inserted into the esophagus under direct visualization with ease and passed to the second portion of the duodenum with ease. Second portion of duodenum and duodenal bulb were normal. The pylorus, antrum, body, fundus, and cardia were normal except for enlarged folds in the body and fundus of the stomach. These were biopsied in several areas. In the distal esophagus starting at the GE junction at 42 cm, there was a larger mass. This mass was noncircumferential except possibly at the GE junction, but extended up one side of the esophagus. It was biopsied in multiple places. It extended from 37 to 42 cm from the incisors. ASSESSMENT: 1. Distal esophageal mass extending to the gastroesophageal junction from 37 to 42 cm - status post biopsy. 2. Enlarged gastric folds - status post biopsy. 3. Otherwise normal esophagogastroduodenoscopy. RECOMMENDATIONS: 1. Await histopathology. 2. CT abdomen and pelvis with contrast. 3. The patient will need to stay on a liquid diet or he may need a percutaneous endoscopic gastrostomy. Job ID: [id number]
[2018-07-09 17:12] LABS: A/G Ratio 0.5 (0.7-1.7); Albumin 2.6 g/dL (2.9-4.4); Alpha 1 0.5 g/dL (0.0-0.4); Alpha 2 0.8 g/dL (0.4-1.0); Beta 1.3 g/dL (0.7-1.3); Gamma 2.4 g/dL (0.4-1.8); M-Spike Not Observed g/dL (Not Observed)
[2018-07-09 17:12] LABS: Albumin-Ur 23.9 % (.); Alpha 1 - Ur 4.1 % (.); Alpha 2 - Ur 11.6 % (.); Beta-Ur 29.5 % (.); Gamma-Ur 30.8 % (.); M-Spike,% Not Observed % (Not Observed); Protein, Urine 121.1 mg/dL (Not Estab.)
== END 2018-07-07 12:57 | disposition home or self-care (01) | DRG 543 ==
LOC: SCSER 11:27 → T4-B 14:57
PROVIDERS: ADMIT Student in an Organized Health Care Education/Training Program; ATTEND Student in an Organized Health Care Education/Training Program
PROC: 0DB68ZX Excision of Stomach, Via Natural or Artificial Opening Endoscopic, Diagnostic (ICD-10-PCS; principal; 2018-07-04)
DX: C79.51 Secondary malignant neoplasm of bone (principal); N39.0 Urinary tract infection, site not specified; E87.1 Hypo-osmolality and hyponatremia; N17.9 Acute kidney failure, unspecified; I69.954 Hemiplegia and hemiparesis following unspecified cerebrovascular disease affecting left non-dominant side; I25.10 Atherosclerotic heart disease of native coronary artery without angina pectoris; E11.22 Type 2 diabetes mellitus with diabetic chronic kidney disease; I12.9 Hypertensive chronic kidney disease with stage 1 through stage 4 chronic kidney disease, or unspecified chronic kidney disease; N18.3 Chronic kidney disease, stage 3 (moderate); Z86.73 Personal history of transient ischemic attack (TIA), and cerebral infarction without residual deficits; E11.51 Type 2 diabetes mellitus with diabetic peripheral angiopathy without gangrene; N40.0 Benign prostatic hyperplasia without lower urinary tract symptoms; F17.210 Nicotine dependence, cigarettes, uncomplicated
CPT/HCPCS: 36415; 36416; 71045; 71260; 74176; 74177; 77075; 80053; 81003; 81015; 82105; 82378; 83605; 83615; 84153; 84154; 84165; 84166; 84702; 85025; 85060; 86300; 86301; 86304; 87040; 87077; 87086; 87186; 88112; 88305; 88312; 88313; 96365; 96366; J0696; J1650; J2001; J2270; J2704; J7050